=== PATIENT | female | born 1985 | race Caucasian/White ===

== ENCOUNTER 2020-11-06 19:18 | Emergency (ER) | payer BC ==
--- NOTE | 2020-11-06 19:45 | EDM.PDOC ---
ED HPI GENERAL MEDICAL PROBLEM - General Chief Complaint: General Stated Complaint: DIZZY,FALLING ASLEEP RANDOMLY,HEADACHE Time Seen by Provider: 11/06/20 19:35 - History of Present Illness INITIAL COMMENTS - FREE TEXT/NARRATIVE: 34-year-old female presents the emergency room with dizziness head pain and a headache. She is also having problems with falling asleep during the day. Nearly a month ago the patient sustained a pretty significant head injury where she rolled a scooter back slapping her head on the concrete made a loud noise. Since this time patient has had a lot of problems with headaches and dizziness. The patient has problems falling asleep during the day however this is been an ongoing problem. Patient has not had any nausea or vomiting she has headaches mostly in the left side. Since the time of the fall and with the onset of the headaches the patient's had pretty significant dizziness this can be aggravated from turning to the left turning to the right or any generalized change in position. The patient has not been evaluated for this head injury. This evening we will concentrate on her head injury as far as the falling asleep during the day this should be addressed after her concussive symptoms improve as this was going on for months prior to the head injury. Headache Pain Score (Numeric/FACES): 5 - Related Data Allergies Allergy/AdvReac Type Severity Reaction Status Date / Time Sulfa (Sulfonamide Allergy Itching Verified 11/06/20 19:44 Antibiotics) Home Meds: Home Meds Orphenadrine [Norflex] 100 mg PO DAILY #10 tab 11/06/20 [Rx] PARoxetine HCl [Paxil] 40 mg PO DAILY 11/06/20 [History] buprenorphine HCL [Buprenorphine HCl] 8 mg SL QID 11/06/20 [History] ED ROS GENERAL - Review of Systems Review Of Systems: See Below Constitutional: Reports: No Symptoms HEENT: Reports: Vertigo (Dizziness symptoms) Respiratory: Reports: No Symptoms Cardiovascular: Reports: No Symptoms Endocrine: Reports: No Symptoms GI/Abdominal: Reports: No Symptoms : Reports: No Symptoms Musculoskeletal: Reports: No Symptoms Skin: Reports: No Symptoms ED EXAM, GENERAL - Physical Exam Exam: See Below Exam Limited By: No Limitations General Appearance: Alert, No Apparent Distress Eye Exam: Bilateral Eye: EOMI, Normal Inspection, PERRL Ears: Normal External Exam, Normal Canal, Hearing Grossly Normal, Normal TMs Nose: Normal Inspection, Normal Mucosa, No Blood Throat/Mouth: Normal Inspection, Normal Lips, Normal Teeth, Normal Gums, Normal Oropharynx, Normal Voice, No Airway Compromise Head: Atraumatic, Normocephalic Neck: Normal Inspection, Supple, Non-Tender, Full Range of Motion, Other (Significant muscle spasm in the paraspinous muscles on the left side. Palpation at the insertion of the skull causes pain shooting up over the top of her head on that side and is very similar to the headaches she is complaining of). No: Lymphadenopathy (L), Lymphadenopathy (R) Respiratory/Chest: No Respiratory Distress, Lungs Clear, Normal Breath Sounds Cardiovascular: Regular Rate, Rhythm, No Edema, No Murmur Neurological: Other (Cranial nerves II through XII grossly intact all muscle groups in the upper and lower extremities are equal and appropriate bilaterally deep tendon reflexes at the brachial radialis and patella tendons is normal. Cerebellar testing is entirely within normal limits) Psychiatric: Normal Affect, Normal Mood Course - Vital Signs Last Recorded V/S: Last Vital Signs Temp 36.7 C 11/06/20 19:30 Pulse 84 11/06/20 19:30 Resp 18 11/06/20 19:30 BP 140/77 11/06/20 19:30 Pulse Ox 98 11/06/20 19:30 - Orders/Labs/Meds Orders: Active Orders 24 hr Category Date Time Status Head wo Cont [CT] Stat Exams 11/06/20 20:39 Taken Labs: Laboratory Tests 11/06/20 Range/Units 20:10 Urine HCG, Qual Negative (NEGATIVE) - Re-Assessments/Exams Free Text/Narrative Re-Assessment/Exam: 11/06/20 22:40 The patient go through a CAT scan with her symptoms. Radiology was concerned about a subacute left-sided subarachnoid hemorrhage and also a subdural hematoma cannot be excluded we do not have MRI available at this time to help clarify this issue. I discussed this with Dr. White, neurosurgeon at [facility] in [place] who recommends and the patient gets home to follow-up with her regular healthcare provider for further disposition. Given that the patient symptoms are probably getting worse rather than getting better it is essential that she has follow-up. For her neck spasm we will start her on Norflex at night only. Departure - Departure Time of Disposition: 22:47 Disposition: Home, Self-Care 01 Clinical Impression: Cervical strain, acute, Concussion, Subacute subdural hematoma - Discharge Information Referrals: PCP,Not In Area [Primary Care Provider] - Forms: ED Department Discharge Additional Instructions: Return to the emergency room with any questions problems or worsening symptoms. Follow-up with your regular healthcare provider as soon as you get home. Consider MRI images to further clarify this subacute hematoma issue. You have been given a prescription for Norflex, this is a muscle relaxant take 1 every evening to help with your neck spasms. This can cause sedation until you know how your system reacts to it allow 12 hours after using this medication before driving or returning to work Avoid ibuprofen or naproxen. Use Tylenol 1000 mg every 6 hours as needed for discomfort Sepsis Event Note (ED) - Focused Exam Vital Signs: Vital Signs Temp Pulse Resp BP Pulse Ox 11/06/20 19:30 36.7 C 84 18 140/77 98 - My Orders Last 24 Hours: My Active Orders 11/06/20 20:39 Head wo Cont [CT] Stat - Assessment/Plan Last 24 Hours: My Active Orders 11/06/20 20:39 Head wo Cont [CT] Stat
[2020-11-06] MEDS ORDERED: Orphenadrine 100 MG Tab.ER PO SCH (21:00)
--- NOTE | 2020-11-07 18:18 | CT ---
Head CT Technique: Multiple axial sections through the brain were obtained. Intravenous contrast was not utilized. Reconstructed coronal and sagittal images were obtained. Comparison: No prior intracranial imaging is available. Findings: Ventricles along with basal cisterns and sulci over the convexities are within normal limits. No abnormal parenchymal densities are seen. No evidence of intracranial hemorrhage. No midline shift or mass-effect is appreciated. Bone window settings were reviewed which show no acute calvarial abnormality. Visualized mastoid sinuses and paranasal sinuses show nothing acute. Impression: 1. Nothing acute is seen on noncontrast head CT study. No definite intracranial hemorrhage is seen at this time. Diagnostic code #1 I slightly disagree with preliminary report from [facility], finalized on 11/06/20, 11:09 PM CDT, code 2
[2020-11-07] MEDS ORDERED: Orphenadrine 100 MG Tab.ER PO ONE (21:00)
== END 2020-11-06 23:03 | disposition home or self-care (01) ==
LOC: JD.ED 19:18
DX: S06.5X9A Traumatic subdural hemorrhage with loss of consciousness of unspecified duration, initial encounter (principal); S06.0X9A Concussion with loss of consciousness of unspecified duration, initial encounter; S16.1XXA Strain of muscle, fascia and tendon at neck level, initial encounter; Z88.2 Allergy status to sulfonamides; Z79.899 Other long term (current) drug therapy; W05.1XXA Fall from non-moving nonmotorized scooter, initial encounter
CPT/HCPCS: 70450; 81025; 99284; A9270; 99283